=== PATIENT | male | born 1980 | race Caucasian/White ===

== ENCOUNTER 2017-12-22 09:09 | Day surgery (SDC) | payer BC, MEDICAID ==
[2017-12-22] MEDS: Lactated Ringers 1,000 ML IV SCH ×2 (10:08→12:40)
[2017-12-22] MEDS ORDERED: cefOXitin 2 GM Vial IV ONE (10:15)
[2017-12-22] MEDS ORDERED: cefOXitin 2 GM in Sodium Chloride 0.9% 100 ML IV ONE (10:15)
[2017-12-22] MEDS ORDERED: ceFAZolin 2 GM in Premix Bag 1 BAG IV ONE (10:15)
[2017-12-22] MEDS ORDERED: Albuterol/Ipratropium 3.0-0.5 MG/3 ML Neb Soln NEB ONE (10:33)
[2017-12-22] MEDS ORDERED: Albuterol/Ipratropium 3.0-0.5 MG/3 ML Neb Soln ONE (10:35)
[2017-12-22] MEDS ORDERED: Succinylcholine 200 MG/10 ML MDV IV ONE (11:00)
[2017-12-22] MEDS ORDERED: Ketorolac 30 MG/ML SDV IVPUSH ONE (11:00)
[2017-12-22] MEDS ORDERED: fentaNYL 100 MCG/2 ML SDV IV ONE (11:00)
[2017-12-22] MEDS ORDERED: Neostigmine Methylsulfate 10 MG/10 ML MDV IVPUSH ONE (11:00)
[2017-12-22] MEDS ORDERED: Ondansetron 4 MG/2 ML SDV IVPUSH ONE (11:00)
[2017-12-22] MEDS ORDERED: Midazolam 1 MG/ML 2 ML SDV IV ONE (11:00)
[2017-12-22] MEDS ORDERED: HYDROmorphone 2 MG/ML SDV IV ONE (11:00)
[2017-12-22] MEDS ORDERED: Rocuronium 100 MG/10 ML MDV IV ONE (11:00)
[2017-12-22] MEDS ORDERED: Labetalol 100 MG/20 ML MDV IV ONE (11:00)
[2017-12-22] MEDS ORDERED: Lactated Ringers 1,000 ML IV ONE (11:00)
[2017-12-22] MEDS ORDERED: Propofol 200 MG/20 ML SDV IV ONE (11:00)
[2017-12-22] MEDS ORDERED: Glycopyrrolate 0.2 MG/ML 5 ML MDV IV ONE (11:00)
[2017-12-22] MEDS ORDERED: Lidocaine 1% with EPINEPHrine 1:100,000 20 ML MDV INJECT ONE (11:30)
[2017-12-22] MEDS ORDERED: Bupivacaine 0.5% 30 ML SDV INJECT ONE (11:30)
--- NOTE | 2017-12-22 12:09 | PCM.OPNOTE ---
- General Post-Op/Procedure Note Date of Surgery/Procedure: 12/22/17 Operative Procedure(s): lap cholecystectomy Findings: gallbladder with stones Pre Op Diagnosis: sx gallstones Post-Op Diagnosis: Same Anesthesia Technique: General ET Tube, Local (8 ml 1 % lido with epi/0.5% buvipicaine) Primary Surgeon: Sonido Mckay Anesthesia Provider: Venkatesh Weber Pathology: gallbladder and contents Complications: None Condition: Good Free Text/Narrative:: see dictation
--- NOTE | 2017-12-22 21:22 | OR ---
DATE OF OPERATION: 12/22/2017 SURGEON: Sonido Mckay MD PROCEDURE PERFORMED: Laparoscopic cholecystectomy. PREOPERATIVE DIAGNOSIS: Symptomatic gallstones. POSTOPERATIVE DIAGNOSIS: Symptomatic gallstones. INDICATIONS FOR PROCEDURE: This 37-year-old white male, who is referred with a history of abdominal pain predominantly in the right upper quadrant epigastric area. Workup has demonstrated 2 large gallstones appears to have some fatty food intolerance. He was offered and accepted laparoscopic cholecystectomy. INTRAOPERATIVE FINDINGS: As follows: The cystic duct and cystic artery were identified easily. Total of 8 mL of our local mixture was used. DESCRIPTION OF THE PROCEDURE: After an excellent general anesthetic was administered, the patient was prepped and draped in the usual sterile manner. We turned our attention to the area just above the umbilicus. The area was infiltrated with local and incision was made approximately 2 cm above the umbilicus. Blunt dissection was carried out exposing the midline fascia, 2 stay sutures of 0 Vicryl were placed on either side of the midline and was elevated. An incision was then made through the fascia, and the abdominal cavity was entered. A 10.5-mm Zita trocar was inserted into the abdominal cavity. The patient's abdomen was insufflated to 15 mmHg using carbon dioxide. Under direct visualization, three 5 mm ports were placed, 1 in the midline epigastrium and 2 below the right costal margin at the approximate level of the midclavicular and anterior axillary line. The gallbladder was grasped and retracted in cephalad fashion. Some adhesions were taken down using careful blunt dissection. The infundibulum was grasped and careful dissection was carried out exposing the cystic duct and the cystic artery. Two clips were placed proximally on the cystic duct and one distally, this was then transected. The cystic artery had 2 branches going onto the gallbladder. Two clips were placed proximally and one distally prior to transection of both these structures. The gallbladder was then dissected free from the gallbladder fossa using careful hook cautery dissection. Specimen was delivered into a specimen bag and delivered out through the umbilicus. The gallbladder bed was irrigated, several small oozing points were addressed with electrocautery and after assuring excellent hemostasis the pneumoperitoneum was released and the trocars were removed. The midline fascial defect was closed with a [id number] 0 Vicryl, the 2 stay sutures were tied to each other. Skin was closed using dianne. Needle, sponge, and instrument counts were reported as correct. The patient was taken to recovery room in good condition. /[id number] /MODL
== END 2017-12-22 15:45 | disposition home or self-care (01) ==
LOC: FB.SDS 09:09
PROVIDERS: ATTEND Surgery
DX: K80.20 Calculus of gallbladder without cholecystitis without obstruction (principal); Z79.899 Other long term (current) drug therapy; F17.210 Nicotine dependence, cigarettes, uncomplicated
CPT/HCPCS: 47562; 94640; J0330; J0694; J1170; J1885; J2250; J2405; J2704; J2710; J3010; J7120; J7620; 88304

== ENCOUNTER 2018-01-10 20:37 | Emergency (ER) | payer BC | END 2018-01-10 21:51 | disposition home or self-care (01) | LOC: FB.ED 20:37 | DX: Z48.00 Encounter for change or removal of nonsurgical wound dressing (principal) | CPT/HCPCS: 99282 ==

== ENCOUNTER 2018-02-15 04:28 | Emergency (ER) | payer BC, MEDICAID ==
[2018-02-15] MEDS ORDERED: Ketorolac 60 MG/2 ML SDV IM ONE (04:52)
--- NOTE | 2018-02-15 04:58 | EDM.PDOC ---
ED HPI GENERAL MEDICAL PROBLEM - General Chief Complaint: Headache Stated Complaint: MIGRAINE Time Seen by Provider: 02/15/18 04:40 Source of Information: Reports: Patient History Limitations: Reports: No Limitations - History of Present Illness INITIAL COMMENTS - FREE TEXT/NARRATIVE: Bibi comes into [facility] ED with posterior neck pain and some headache. There is a PMH of migraine headache disorder, but this feels different. There is no injury hx, asx when he went to bed. Pain is throbbing, without visual or auditory features, and no involvement of the scalp. ROM is unrestricted, and has only a minor effect on the quality of the pain. He has taken no meds for sxs relief. back of head Pain Score (Numeric/FACES): 8 - Related Data Allergies Allergy/AdvReac Type Severity Reaction Status Date / Time No Known Allergies Allergy Verified 02/15/18 04:43 Home Meds: Home Meds NK [No Known Home Meds] 02/15/18 [History] Past Medical History HEENT History: Reports: Impaired Vision Gastrointestinal History: Reports: Cholelithiasis Neurological History: Reports: Migraines Psychiatric History: Reports: Depression - Past Surgical History HEENT Surgical History: Reports: Other (See Below) Other HEENT Surgeries/Procedures: PT STATES HAS NOT HAD A TONSILLECTOMY Social & Family History - Family History Family Medical History: Noncontributory - Tobacco Use Smoking Status *Q: Current Every Day Smoker Years of Tobacco use: 20 Packs/Tins Daily: 1 - Caffeine Use Caffeine Use: Reports: Soda - Recreational Drug Use Recreational Drug Use: No ED ROS GENERAL - Review of Systems Review Of Systems: ROS reveals no pertinent complaints other than HPI. - Physical Exam Exam: See Below Exam Limited By: No Limitations General Appearance: Alert, WD/WN, Mild Distress Eye Exam: Bilateral Eye: EOMI, Normal Inspection, PERRL Ears: Normal External Exam Nose: Normal Inspection Throat/Mouth: Normal Inspection, Normal Lips, Normal Teeth, Normal Gums, Normal Oropharynx, Normal Voice, No Airway Compromise Head Exam: Atraumatic, Normocephalic Neck: Normal Inspection, Supple, Full Range of Motion Respiratory/Chest: Lungs Clear, Normal Breath Sounds, Chest Non-Tender Cardiovascular: No Murmur Neuro Exam (Abbreviated): Alert, Oriented, CN II-XII Intact, Normal Cognition, Normal Gait, Normal Reflexes, No Motor/Sensory Deficits Back Exam: Normal Inspection Extremities: Normal Inspection Psychiatric: Normal Affect, Normal Mood Skin Exam: Warm, Dry, Intact, Normal Color, No Rash Course - Vital Signs Text/Narrative:: Following assessment, I administered Toradol 60 mg IM and observed over the next 30 minutes. There was some improvement in sxs at time of discharge. Last Recorded V/S: Last Vital Signs Temp 36.6 C 02/15/18 05:32 Pulse 68 02/15/18 05:32 Resp BP 131/88 02/15/18 05:32 Pulse Ox 98 02/15/18 05:32 - Orders/Labs/Meds Meds: Medications Discontinued Medications Generic Name Dose Route Start Last Admin Trade Name Hira PRN Reason Stop Dose Admin Ketorolac Tromethamine 60 mg 02/15/18 04:52 02/15/18 04:56 Toradol IM 02/15/18 04:53 60 mg ONETIME ONE Administration Departure - Departure Time of Disposition: 05:30 Disposition: Home, Self-Care 01 Condition: Fair Clinical Impression: Cervicalgia - Discharge Information Instructions: General Headache Without Cause Referrals: Koko Bush MD [Primary Care Provider] - Forms: ED Department Discharge Additional Instructions: you may take tylenol and ibuprofen for pain if you need, you may follow up with your primary care doctor as needed. - Problem List & Annotations (1) Cervicalgia SNOMED Code(s): 45052285 Code(s): M54.2 - CERVICALGIA Status: Acute Annotation/Comment:: I suggested NSAIDs for any relapse of neck pain and associated headache, rest, and medical follow up if needed. - Problem List Review Problem List Initiated/Reviewed/Updated: Yes - Assessment/Plan Plan: Follow up with PCP if needed.
== END 2018-02-15 05:35 | disposition home or self-care (01) ==
LOC: FB.ED 04:28
DX: M54.2 Cervicalgia (principal); F17.210 Nicotine dependence, cigarettes, uncomplicated; F32.9 Major depressive disorder, single episode, unspecified
CPT/HCPCS: 96372; 99283; J1885